=== PATIENT | female | born 2000 | race Two or more races ===

== ENCOUNTER 2021-05-25 20:13 | Emergency (ER) | payer SELFPAY ==
[2021-05-25 20:25] VITALS: BP 142/93; PULSE 85; RESP 18; TEMP 36.6; O2SAT 96
[2021-05-25 21:50] LABS: Basophils Absolute Auto 0.1 K/mm3 (0.0-0.1); Basophils Percent Auto 0.8 % (0.2-1.2); Eosinophils Absolute Auto 0.1 K/mm3 (0-0.3); Eosinophils Percent Auto 1.1 % (0-4.4); Hematocrit 43.1 % (37.0-47.0); Hemoglobin 14.3 g/dL (12.0-15.0); Immature Granulocyte Absolute 0.01 K/mm3 (0.00-0.031); Immature Granulocyte Percent A 0.1 % (0-0.5); Lymphocytes Absolute Auto 2.52 K/mm3 (0.9-3.2); Lymphocytes Percent Auto 32.1 % (18.3-44.2); Mean Corpuscular HGB Conc 33.2 g/dl (32-36); Mean Corpuscular Hemoglobin 29.7 pg (26-34); Mean Corpuscular Volume 89.6 fl (80-100); Mean Platelet Volume 10.4 fl (7.4-10.4); Monocytes Absolute Auto 0.5 K/mm3 (0.1-0.6); Monocytes Percent Auto 6.4 % (2.6-8.5); Neutrophils Absolute Auto 4.7 K/mm3 (1.3-6.7); Neutrophils Percent Auto 59.5 % (45.5-73.1); Platelet Count Result 249 k/mm3 (150-375); Red Blood Count 4.81 M/mm3 (4.2-5.4); Red Cell Distribution Width 12.3 % (11.5-14.5); White Blood Count 7.9 K/mm3 (4.5-10.0)
[2021-05-25 22:05] LABS: Alanine Aminotransferase 18 U/L (4-35); Albumin Level 4.7 g/dL (3.5-5.1); Alkaline Phosphatase 88 U/L (38-126); Anion Gap 9 mmol/L (8-16); Aspartate Amino Transferase 25 U/L (14-36); Bilirubin,Total 0.2 mg/dL (0.2-1.3); Blood Urea Nitrogen 15 mg/dL (7-17); Calcium 9.6 mg/dL (8.4-10.2); Carbon Dioxide 27 mmol/L (22-30); Chloride 107 mmol/L (98-107); Estimated CRCL calculation 107 ml/min; Estimated Glomerular Filt Rate > 60; Glucose 93 mg/dL (65-110); Potassium 3.9 mmol/L (3.4-5.0); Sodium 143 mmol/L (137-145)
[2021-05-25] MEDS: SODIUM CHLORIDE 0.9% IV 1,000 ML 999 ML IV CONT (22:12)
[2021-05-25 22:14] LABS: Lipase 162 U/L (23-300)
[2021-05-25 23:32] LABS: Add Urine Microscopic? NO; Appearance Urine Clear (Clear); Bilirubin Urine Negative (Negative); Blood Urine Negative (Negative); Color Urine Straw (Yellow); Glucose Urine UA Negative (Negative); Ketones Urine Negative (Negative); Leukocyte Esterase Ur Negative LEU/UL (Negative); Nitrate Urine Negative (Negative); Protein Urine Negative (Negative); Specific Grav Ur 1.017 (1.001-1.035); Urobilinogen Urine Negative mg/dL (<2.0)
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
[2021-05-26 00:58] VITALS: BP 119/79; PULSE 70; RESP 14; O2SAT 98
== END 2021-05-26 00:55 | disposition home or self-care (01) ==
PROVIDERS: Emergency Provider Emergency Medicine
DX: N93.9 Abnormal uterine and vaginal bleeding, unspecified (principal); R10.30 Lower abdominal pain, unspecified; G40.909 Epilepsy, unspecified, not intractable, without status epilepticus
CPT/HCPCS: 36415; 80053; 81003; 81025; 83690; 85025; 96360; 99284; J7030

== ENCOUNTER 2022-05-18 21:12 | Observation (INO) | payer OTHER, SELFPAY ==
--- NOTE | ~2022-05-18 | CT_ITS ---
EXAMINATION: CT brain wo con DATE: 05/18/2022 23:55 INDICATION: Superior and posterior headache. Increased seizure frequency. Dizziness. TECHNIQUE: Computed tomography (CT) of the head was performed without intravenous contrast. The mA wa s adjusted according to patient size. Iterative reconstruction technique was employed. Exam dose: 60 5.33 mGy-cm total exam DLP. COMPARISON: None FINDINGS: No intracranial mass lesion or hemorrhage Mastoid air cells and included paranasal sinuses are clear. No fracture or bone destruction of the cr anial vault. Or cerebrovascular accident. No midline shift or mass effect. Normal ventricular size. N o subdural or epidural hematoma. IMPRESSION: No significant abnormality Reviewed, dictated and finalized at [facility] Reviewed, dictated and finalized at [facility]. [facility] MEDIA IMPRESSION: No significant abnormality
[2022-05-18 21:15] VITALS: BP 119/101; PULSE 79; RESP 20; TEMP 36.4; O2SAT 99
[2022-05-18 22:10] VITALS: BP 122/80; PULSE 66; RESP 20; O2SAT 100
[2022-05-18] MEDS: LORazepam INJ (*CRX) 2 MG/ML VIAL IV PUSH (22:54)
--- NOTE | 2022-05-18 22:56 | PC.NURSE ---
Pt's friend alerted this RN that pt is unconscious . Upon entering room pt was not responsive to painful stimuli and began having tonic clonic seizure activity lasting approx 15-[address] Sifuentes notified and verbal order for 2mg ativan IV push given. 2mg ativan IV push administered at 2254. Mei VARGAS updated. Pt's friend states pt was c/o feeling dizzy before she started seizing.
--- NOTE | 2022-05-18 22:58 | ECG_ITS ---
Measurements Intervals [place] Rate: 61 P: 55 MN: 164 QRS: 25 QRSD: 85 T: -5 QT: 414 QTc: 417 Interpretive Statements SINUS RHYTHM NO PREVIOUS ECG AVAILABLE FOR COMPARISON Electronically Signed On 05-19-2022 8:28:28 [employer] CL[employer] by Britta Doty M.D.
--- NOTE | 2022-05-18 22:59 | ED.GENADULT ---
HPI - General Adult General Chief complaint: Seizure Stated complaint: seizures x2 days Time Seen by Provider: 05/18/22 22:20 History of Present Illness HPI narrative: patient is postictal. History was taken from her sister. This is a 22-year-old female with a known diagnosis of seizures. Over last 2 days she has been complaining of headache and increased frequency of seizures. She has been taking her medication as directed. She has not been complaining of any fevers or illness. Unable to obtain any other information Related Data Home Medications Medication Instructions Recorded Confirmed clonazepam 0.5 mg tablet 0.5 mg PO DAILY 05/18/22 05/18/22 escitalopram oxalate 10 mg tablet 10 mg PO DAILY 05/18/22 05/18/22 levetiracetam 250 mg tablet 250 mg PO BID 05/18/22 05/18/22 Allergies Allergy/AdvReac Type Severity Reaction Status Date / Time No Known Allergies Allergy Verified 05/18/22 21:19 [facility] Past Medical History Medical History (Updated 05/19/22 @ 01:47 by Lee Sifuentes MD) Seizure disorder Surgical History Surgical History (Updated 05/25/21 @ 23:39 by Javier Rice MD) No pertinent past surgical history Social History Social History (Updated 05/25/21 @ 23:39 by Javier Rice MD) Smoking status: Never smoker Course Vital Signs Vital signs: Vital Signs Temperature 97.5 F L 05/18/22 21:15 Pulse Rate 79 05/18/22 21:15 Respiratory Rate 20 05/18/22 21:15 Blood Pressure 119/101 H 05/18/22 21:15 Pulse Oximetry 99 05/18/22 21:15 Oxygen Delivery Room Air 05/18/22 21:15 Temperature 97.5 F L 05/18/22 21:15 Pulse Rate 62 05/19/22 00:44 Respiratory Rate 21 H 05/19/22 00:44 Blood Pressure 107/67 05/19/22 00:44 Pulse Oximetry 100 05/19/22 00:44 Oxygen Delivery Room Air 05/18/22 21:15 Medical Decision Making MDM Narrative Medical decision making narrative: -Presentation: 22-year-old female with known seizure diagnosis presenting ED with increasing seizure frequency. patient is currently postictal but told nursing staff that she has been taking her medications as directed. Does appear to be more stress at home than usual patient has been complaining of headache over last several days. -DDX includes but is not limited to: Breakthrough seizures, headache, intracranial hemorrhage, mass -Co-morbidities complicating care: seizure disorder, patient is postictal -Social determinants of health: patient is a grad student -External Chart Review: none -Independent history sources: Monique - Friend at bedside -Discussion of Management/Consultants: hao neuro-hospitalist -Independent interpretation of studies: CT head was negative for any acute findings. CBC was within normal limits. Metabolic panel is within normal limits. Independent EKG interpretation: Rhythm [sinus], Rate [61], [place] -[normal], [place] -[normal], QRS [narrow], QTC [normal], T waves -[negative for concerning inversions], ST Segments - [Negative for concerning elevations] Final interpretations: [Normal Sinus Rhythm] Dx tests considered but not ordered: -Procedures: -Interventions: 2 mg Ativan, 4200 mg Keppra, 1 L normal saline -Shared decision making / Disposition: patient had 2 witnessed seizures in the emergency department. She did return to her baseline mental status between them. The patient will be admitted hospital for newly intractable seizures. Consult has been placed to neurology. -RX Vital Signs Vital Signs: Vital Signs Temperature 97.5 F L 05/18/22 21:15 Pulse Rate 79 05/18/22 21:15 Respiratory Rate 20 05/18/22 21:15 Blood Pressure 119/101 H 05/18/22 21:15 Pulse Oximetry 99 05/18/22 21:15 Oxygen Delivery Room Air 05/18/22 21:15 Temperature 97.5 F L 05/18/22 21:15 Pulse Rate 62 05/19/22 00:44 Respiratory Rate 21 H 05/19/22 00:44 Blood Pressure 107/67 05/19/22 00:44 Pulse Oximetry 100 05/19/22 00:44 Oxyge
[2022-05-18] MEDS: SODIUM CHLORIDE 0.9% IV 1,000 ML 999 ML IV CONT (23:09)
[2022-05-18 23:19] LABS: Basophils Percent Auto 0.4 % (0.2-1.2); Eosinophils Absolute Auto 0.1 K/mm3 (0-0.3); Eosinophils Percent Auto 1.4 % (0-4.4); Hematocrit 40.8 % (37.0-47.0); Hemoglobin 13.5 g/dL (12.0-15.0); Immature Granulocyte Absolute 0.02 K/mm3 (0.00-0.031); Immature Granulocyte Percent A 0.2 % (0-0.5); Lymphocytes Absolute Auto 2.73 K/mm3 (0.9-3.2); Lymphocytes Percent Auto 27.8 % (18.3-44.2); Mean Corpuscular HGB Conc 33.1 g/dl (32-36); Mean Corpuscular Hemoglobin 29.5 pg (26-34); Mean Corpuscular Volume 89.3 fl (80-100); Mean Platelet Volume 11.3 fl (7.4-10.4); Monocytes Absolute Auto 0.6 K/mm3 (0.1-0.6); Monocytes Percent Auto 6.5 % (2.6-8.5); Neutrophils Absolute Auto 6.3 K/mm3 (1.3-6.7); Neutrophils Percent Auto 63.7 % (45.5-73.1); Platelet Count Result 260 k/mm3 (150-375); Red Blood Count 4.57 M/mm3 (4.2-5.4); Red Cell Distribution Width 12.7 % (11.5-14.5); White Blood Count 9.8 K/mm3 (4.5-10.0)
[2022-05-18 23:21] VITALS: BP 94/60; PULSE 62; RESP 16; O2SAT 100
[2022-05-18 23:31] LABS: Anion Gap 6 mmol/L (8-16); Blood Urea Nitrogen 21 mg/dL (7-17); Calcium 8.9 mg/dL (8.4-10.2); Carbon Dioxide 29 mmol/L (22-30); Chloride 105 mmol/L (98-107); Estimated CRCL calculation 102 ml/min; Estimated Glomerular Filt Rate > 60; Glucose 81 mg/dL (65-110); Magnesium 2.1 mg/dL (1.6-2.3); Potassium 3.8 mmol/L (3.4-5.0); Sodium 140 mmol/L (137-145)
[2022-05-19] VITALS (22 sets, daily range): BP systolic 96–119; BP diastolic 50–72; PULSE 55–91; RESP 16–22; TEMP 36.1–36.6; O2SAT 98–100; BMI 27.0; BMI 26.9
[2022-05-19 00:14] LABS: Influenza A QL RT-PCR Negative (Negative); Influenza B QL RT-PCR Negative (Negative); RSV RNA, RT-PCR Negative (Negative); SARS-CoV-2 RNA PCR Negative
--- NOTE | 2022-05-19 00:56 | PM.IMHP ---
H&P: HPI History of Present Illness Date/Time: 05/19/22 00:56 Chief Complaint: Seizures Narrative: 22-year-old female with past medical history significant for seizures patient is brought to the emergency room after having been witnessed several seizures by her roommate PMF Past Medical History Medical History (Updated 05/19/22 @ 03:30 by Wolf Borwn MD) Seizure disorder Surgical History Surgical History (Updated 05/25/21 @ 23:39 by Javier Rice MD) No pertinent past surgical history Family History Family History (Updated 05/19/22 @ 03:24 by Tiffany Noguera RN) Father Diabetes mellitus Social History Social History (Updated 05/25/21 @ 23:39 by Javier Rice MD) Smoking status: Never smoker Second hand tobacco smoke exposure: No Alcohol intake: current Drinks per week: 1 Substance use: never Lack of Transportation: No Lack of Food: Never True Current Housing: I Have Housing Concerned About Future Housing: No Difficulty Paying Gas/Electric Bills: No Difficulty Paying for Meds: No Currently Unemployed: No Education: Bachelor's Degree Difficulty w/ Childcare or Family Care: No Spiritual care concerns: No Meds Home Medications and Allergies Home Medications Medication Instructions Recorded Confirmed Type clonazepam 0.5 mg tablet 0.5 mg PO DAILY 05/18/22 05/18/22 History escitalopram oxalate 10 mg tablet 10 mg PO DAILY 05/18/22 05/18/22 History levetiracetam 250 mg tablet 250 mg PO BID 05/18/22 05/18/22 History Allergies Allergy/AdvReac Type Severity Reaction Status Date / Time No Known Allergies Allergy Verified 05/18/22 21:19 Vital Signs Vital Signs - 24 hr 05/18/22 21:15 05/18/22 22:10 05/18/22 23:21 Temperature 97.5 F L Pulse Rate 79 66 62 Respiratory Rate 20 20 16 Blood Pressure 119/101 H 122/80 94/60 L Pulse Oximetry 99 100 100 Oxygen Delivery Room Air 05/19/22 00:31 05/19/22 00:44 Temperature Pulse Rate 62 62 Respiratory Rate 19 21 H Blood Pressure 107/67 Pulse Oximetry 100 100 Oxygen Delivery H&P: Results Labs Labs: Short CBC 05/18/22 Range/Units 23:08 WBC 9.8 (4.5-10.0) K/mm3 Hgb 13.5 (12.0-15.0) g/dL Hct 40.8 (37.0-47.0) % Plt Count 260 (150-375) k/mm3 [facility] 05/18/22 23:08 Sodium 140 Potassium 3.8 Chloride 105 Carbon Dioxide 29 BUN 21 H Creatinine 0.70 Glucose 81 Calcium 8.9 Assessment and Plan Assessment and plan (1) Breakthrough seizure: Code(s): G40.919 - Epilepsy, unspecified, intractable, without status epilepticus Status: Acute (2) Altered mental status: Code(s): R41.82 - Altered mental status, unspecified Status: Acute
[2022-05-19 01:58] LABS: Influenza A QL RT-PCR Negative (Negative); Influenza B QL RT-PCR Negative (Negative); SARS-CoV-2 RNA PCR Negative
--- NOTE | 2022-05-19 02:53 | ADMGEN ---
This patient, Lisa Mendez, was admitted to IMU Room 203-01 at 0250. Patient/family oriented to hospital policies and general routines including ID bracelet, bed and alarms, visiting hours, pain management, procedures, bathroom and other care routines, personal items, smoking policy, room service/diet, and visiting hours. Information on how to activate the Rapid Response Team has been discussed. Patient/Family are encouraged to report perceived risks to care and to ask questions if they do not understand what they are told or what they should do.
[2022-05-19] MEDS: LACTATED RINGERS 1,000 ML 125 ML IV CONT (03:52)
--- NOTE | 2022-05-19 09:34 | PM.IMPN ---
Progress Note: A&P Assessment and Plan (1) Breakthrough seizure: Code(s): G40.919 - Epilepsy, unspecified, intractable, without status epilepticus Status: Acute Assessment and Plan: -given keppra 4200 IVPB in ED -Ativan 2 mg prn for seizure -no neurological deficits, pt A/Ox3 at this time w/ persistent ENRIQUE -restarted home dose of Keppra 250 po BID -pending neuro consult (2) Altered mental status: Code(s): R41.82 - Altered mental status, unspecified Status: Acute Assessment and Plan: -resolved, pt A/Ox3 Subjective Date/time seen: 05/19/22 09:34 Interval history: 22 yo w/ hx of seizures admitted for intractable breakthrough seizure. Pt A/Ox3 currently but still very somnolent. Reports extreme weakness/fatigue and continued posterior ENRIQUE. No paraesthesias. Reports she had been taking her seizure medication as directed. States her neurologist is in [place]. She has been here for 1 year but has not established with a neurologist here. Review of Systems Review of Systems: All systems reviewed & are unremarkable except as noted in HPI and below Exam Narrative: General: No acute distress, non toxic appearing, somnolent but arousable, lethargic Eyes: PERRL, no scleral icterus HEENT: NCAT, external ears normal, MMM Respiratory: No respiratory distress, Lungs CTA bilaterally, no wheezing Cardiovascular: RRR, no murmur Abdominal: Soft, nontender, non distended, no rebound or guarding Musculoskeletal: Moves all 4 extremities, no edema Neurological: A/Ox3, speech clear, no facial asymmetry Skin: Warm, dry, no rashes Psychiatric: Normal affect, normal mood Objective Data Vital Signs Vital Signs: Vital Signs - 24 hr 05/18/22 21:15 05/18/22 22:10 05/18/22 23:21 Temperature 97.5 F L Pulse Rate 79 66 62 Respiratory Rate 20 20 16 Blood Pressure 119/101 H 122/80 94/60 L Pulse Oximetry 99 100 100 Oxygen Delivery Room Air 05/19/22 00:31 05/19/22 00:44 05/19/22 01:47 Temperature Pulse Rate 62 62 71 Respiratory Rate 19 21 H 22 H Blood Pressure 107/67 97/63 L Pulse Oximetry 100 100 100 Oxygen Delivery 05/19/22 02:30 05/19/22 02:56 05/19/22 04:13 Temperature 97.8 F 97.3 F L Pulse Rate 55 L 72 60 Respiratory Rate 20 20 20 Blood Pressure 105/72 96/57 L 98/61 L Pulse Oximetry 100 100 100 Oxygen Delivery 05/19/22 04:00 05/19/22 04:00 05/19/22 06:00 Temperature Pulse Rate 57 L 58 L Respiratory Rate Blood Pressure Pulse Oximetry Oxygen Delivery Room Air 05/19/22 08:06 Temperature 97.6 F Pulse Rate 71 Respiratory Rate 18 Blood Pressure 105/71 Pulse Oximetry 100 Oxygen Delivery Intake/Output Intake/Output: Intake & Output 05/16/22 05/17/22 05/18/22 05/19/22 23:59 23:59 23:59 23:59 Intake Total 1142 Output Total 350 Balance 792 Meds/Results Medications: Active Medications Generic Name Dose Route Start Last Admin Trade Name Freq PRN Reason Stop Dose Admin Lactated Ringer's 1,000 mls @ 125 mls/hr 05/19/22 01:50 05/19/22 03:52 Lr - Lactated Ringers Iv IV CONT 125 mls/hr .Q8H DAIJA Administration Lorazepam 2 mg 05/19/22 01:47 Lorazepam Inj (*Crx) 2 Mg/Ml Vial IV PUSH ONCE PRN Seizure Activity Labs Labs: Laboratory Results - last 24 hr 05/18/22 05/18/22 05/18/22 23:08 23:08 23:08 WBC 9.8 RBC 4.57 Hgb 13.5 Hct 40.8 MCV 89.3 MCH 29.5 MCHC 33.1 RDW 12.7 Plt Count 260 MPV 11.3 H Immature Gran % (Auto) 0.2 Neut % (Auto) 63.7 Lymph % (Auto) 27.8 [place] % (Auto) 6.5 Eos % (Auto) 1.4 Baso % (Auto) 0.4 Lymph # (Auto) 2.73 [place] # (Auto) 0.6 Eos # (Auto) 0.1 Baso # (Auto) 0.0 Abs Immat Gran (auto) 0.02 Absolute Neuts (auto) 6.3 Absolute Nucleated RBC 0.0 Nucleated RBC % 0.0 Sodium 140 Potassium 3.8 Chloride 105 Carbon Dioxide 29 Anion Gap 6 L BUN 21 H Crea
--- NOTE | 2022-05-19 11:20 | WPDNEURCNPN ---
Consult date: 05/19/22 HPI: Lisa Mendez is a 22 year old female admitted to the hospital through the emergency room where she was brought in with the history of having recurrent seizure of 48 hours duration was noted Rosanne postictal on initial evaluation in the ER further information was given by her sister who reported that she has a known case of seizure disorder and has been experiencing headache increased in frequency of seizures over the last 48 hours without any associated general symptomatology such as fever her medications included clonazepam 0.5 mg daily with the psych at a prime 10 mg daily and levetiracetam 250 mg b.i.d. she is not a smoker initial vital signs were normal EKG was normal without atrial fibrillation CT scan head normal, routine lab studies were normal including the serology and head CT scan was negative for the Review of Systems Review of Systems: All systems reviewed & are unremarkable except as noted in HPI and below PMFSH Past Medical History Medical History (Updated 05/19/22 @ 03:30 by Wolf Brown MD) Seizure disorder Surgical History Surgical History (Updated 05/25/21 @ 23:39 by Javier Rice MD) No pertinent past surgical history Family History Family History (Updated 05/19/22 @ 03:24 by Tiffany Noguera RN) Father Diabetes mellitus Social History Social History (Updated 05/25/21 @ 23:39 by Javier Rcie MD) Smoking status: Never smoker Second hand tobacco smoke exposure: No Alcohol intake: current Drinks per week: 1 Substance use: never Lack of Transportation: No Lack of Food: Never True Current Housing: I Have Housing Concerned About Future Housing: No Difficulty Paying Gas/Electric Bills: No Difficulty Paying for Meds: No Currently Unemployed: No Education: Bachelor's Degree Difficulty w/ Childcare or Family Care: No Spiritual care concerns: No Meds Home Medications and Allergies Home Medications Medication Instructions Recorded Confirmed Type clonazepam 0.5 mg tablet 0.5 mg PO DAILY 05/18/22 05/18/22 History escitalopram oxalate 10 mg tablet 10 mg PO DAILY 05/18/22 05/18/22 History levetiracetam 250 mg tablet 250 mg PO BID 05/18/22 05/18/22 History Allergies Allergy/AdvReac Type Severity Reaction Status Date / Time No Known Allergies Allergy Verified 05/18/22 21:19 Vital Signs Vital Signs - 24 hr 05/18/22 21:15 05/18/22 22:10 05/18/22 23:21 Temperature 36.4 C L Pulse Rate 79 66 62 Respiratory Rate 20 20 16 Blood Pressure 119/101 H 122/80 94/60 L Pulse Oximetry 99 100 100 Oxygen Delivery Room Air 05/19/22 00:31 05/19/22 00:44 05/19/22 01:47 Temperature Pulse Rate 62 62 71 Respiratory Rate 19 21 H 22 H Blood Pressure 107/67 97/63 L Pulse Oximetry 100 100 100 Oxygen Delivery 05/19/22 02:30 05/19/22 02:56 05/19/22 04:13 Temperature 36.6 C 36.3 C L Pulse Rate 55 L 72 60 Respiratory Rate 20 20 20 Blood Pressure 105/72 96/57 L 98/61 L Pulse Oximetry 100 100 100 Oxygen Delivery 05/19/22 04:00 05/19/22 04:00 05/19/22 06:00 Temperature Pulse Rate 57 L 58 L Respiratory Rate Blood Pressure Pulse Oximetry Oxygen Delivery Room Air 05/19/22 08:06 05/19/22 08:00 05/19/22 10:00 Temperature 36.4 C Pulse Rate 71 75 62 Respiratory Rate 18 Blood Pressure 105/71 Pulse Oximetry 100 Oxygen Delivery Results Labs 05/18/22 23:08 05/18/22 23:08 Labs: Short CBC 05/18/22 Range/Units 23:08 WBC 9.8 (4.5-10.0) K/mm3 Hgb 13.5 (12.0-15.0) g/dL Hct 40.8 (37.0-47.0) % Plt Count 260 (150-375) k/mm3 BMP 05/18/22 23:08 Sodium 140 Potassium 3.8 Chloride 105 Carbon Dioxide 29 BUN 21 H Creatinine 0.70 Glucose 81 Calcium 8.9
[2022-05-19] MEDS: levETIRAcetam 250 MG TABLET PO ×2 (11:32→16:40)
--- NOTE | 2022-05-19 11:53 | PC.NURSE ---
Dr. Butts and CARLOS MANUEL Corley notified of witnessed seizure lasting approximately 20 seconds. Bilateral leg clonic movement only. Patient responsive to verbal stimuli immediately following seizure, oriented x4. No medication administered at the time of seizure. Will continue to monitor closely.
[2022-05-19] MEDS: ACETAMINOPHEN 325 MG TABLET 650 MG PO (14:15)
--- NOTE | 2022-05-19 16:30 | PC.NURSE ---
Alerted to patient room for seizure, sternal rub applied with immediate response and discontinuation of seizure. Patient responsive to verbal stimuli and oriented x3. Will continue to monitor closely.
[2022-05-20] VITALS (15 sets, daily range): BP systolic 98–123; BP diastolic 57–72; PULSE 52–96; RESP 16–20; TEMP 36.1–36.6; O2SAT 96–100; BMI 27.0
[2022-05-20 04:12] LABS: Basophils Percent Auto 0.5 % (0.2-1.2); Eosinophils Absolute Auto 0.1 K/mm3 (0-0.3); Eosinophils Percent Auto 1.4 % (0-4.4); Hemoglobin 14.1 g/dL (12.0-15.0); Immature Granulocyte Absolute 0.01 K/mm3 (0.00-0.031); Immature Granulocyte Percent A 0.1 % (0-0.5); Lymphocytes Absolute Auto 2.68 K/mm3 (0.9-3.2); Lymphocytes Percent Auto 36.3 % (18.3-44.2); Mean Corpuscular HGB Conc 33.6 g/dl (32-36); Mean Corpuscular Hemoglobin 29.7 pg (26-34); Mean Corpuscular Volume 88.6 fl (80-100); Mean Platelet Volume 11.3 fl (7.4-10.4); Monocytes Absolute Auto 0.5 K/mm3 (0.1-0.6); Monocytes Percent Auto 6.6 % (2.6-8.5); Neutrophils Absolute Auto 4.1 K/mm3 (1.3-6.7); Neutrophils Percent Auto 55.1 % (45.5-73.1); Platelet Count Result 260 k/mm3 (150-375); Red Blood Count 4.74 M/mm3 (4.2-5.4); Red Cell Distribution Width 12.5 % (11.5-14.5); White Blood Count 7.4 K/mm3 (4.5-10.0)
[2022-05-20 04:33] LABS: Alanine Aminotransferase 15 U/L (6-35); Albumin Level 4.7 g/dL (3.5-5.1); Alkaline Phosphatase 81 U/L (38-126); Anion Gap 8 mmol/L (8-16); Aspartate Amino Transferase 22 U/L (14-36); Bilirubin,Total 0.4 mg/dL (0.2-1.3); Blood Urea Nitrogen 12 mg/dL (7-17); Carbon Dioxide 26 mmol/L (22-30); Chloride 104 mmol/L (98-107); Estimated CRCL calculation 100 ml/min; Estimated Glomerular Filt Rate > 60; Glucose 99 mg/dL (65-110); Potassium 3.7 mmol/L (3.4-5.0); Sodium 138 mmol/L (137-145)
[2022-05-20] MEDS: levETIRAcetam 250 MG TABLET PO ×2 (09:12→16:59)
[2022-05-20] MEDS: ACETAMINOPHEN 325 MG TABLET 650 MG PO ×2 (09:12→17:01)
--- NOTE | 2022-05-20 09:29 | PM.IMPN ---
Progress Note: A&P Assessment and Plan (1) Breakthrough seizure: Code(s): G40.919 - Epilepsy, unspecified, intractable, without status epilepticus Status: Acute Assessment and Plan: Patient presented with increased frequency of breakthrough seizures while maintaining compliance to her antiepileptic medications -patient was loaded with keppra 4200 IVPB in ED -no focal neurologic deficits on exam -continue with Ativan 2 mg p.r.n. for seizure -increase home Keppra to 500 mg b.i.d. per Neurology recommendations. Discussed case with Dr. Butts -EEG is pending -appreciate neurology recommendations (2) Altered mental status: Code(s): R41.82 - Altered mental status, unspecified Status: Acute Assessment and Plan: Likely due to post-ictal state -Patient is A&Ox4 today and answers all questions appropriately though does report some confusion (3) Headache: Code(s): R51.9 - Headache, unspecified Status: Acute Assessment and Plan: Likely secondary to breakthrough seizures -Head CT reviewed with no acute intracranial findings -Supportive care Subjective Date/time seen: 05/20/22 09:29 Interval history: Date of service: 05/20/2022 Lisa Mendez is a 22-year-old female with history of seizure disorder who is seen in follow-up for breakthrough seizures. Patient reports having a seizure yesterday afternoon. Review of nursing notes indicates that she had 2 episodes of seizure-like activity yesterday that was self-limited and did not require any medications. Seizures were terminated after about 20 seconds and patient was responsive afterwards. Today the patient states that she feels dizzy and has an all over headache. She states both of these symptoms are typical for her after having a seizure. She feels very weak and today when attempting to get up to the bedside commode she needed assistance and felt that she could not stand up for more than 30 seconds. She feels unsteady. She is unsure if she bit her tongue or not yesterday but does note some pain in her mouth. Denies any episodes of incontinence. She does feel slightly confused today. She denies episodes of nausea or vomiting. Denies shortness of breath, cough, or chest pain. States that she was established with a neurologist in [place], but has not been seen by any neurologist since moving to the [place] 1 [place] ago. Review of Systems Review of Systems: All systems reviewed & are unremarkable except as noted in HPI and below Exam Narrative: General: Well-nourished, well-appearing 22-year-old female, sitting up in bed, comfortable, NARD Neuro: Drowsy, alert and oriented x4, speech clear, no focal neuro deficits noted HEENMT: normocephalic, atraumatic, EOMI, sclerae anicteric, moist oral mucosa, no tongue laceration visualized Respiratory: clear to auscultation bilaterally, nonlabored breathing Cardio: regular rate, regular rhythm with S1-S2 Abdomen: nondistended, normoactive bowel sounds, soft, nontender to palpation Extremities: no edema, erythema, or tenderness to palpation, DP pulses 2+ bilaterally Skin: no rashes or lesions, warm and dry Psych: appropriate mood and affect, judgment and insight intact Objective Data Vital Signs Vital Signs: Vital Signs - 24 hr 05/19/22 10:00 05/19/22 11:57 05/19/22 12:07 Temperature 97 F L Pulse Rate 62 88 76 Respiratory Rate 16 Blood Pressure 119/58 L Pulse Oximetry 98 Oxygen Delivery Room Air 05/19/22 12:00 05/19/22 14:00 05/19/22 16:19 Temperature 97.3 F L Pulse Rate 76 81 63 Respiratory Rate Blood Pressure 98/66 L Pulse Oximetry 100 Oxygen Delivery 05/19/22 16:00 05/19/22 16:00 05/19/22 18:00 Temperature Pulse Rate 83 75 Respiratory Rate Blood Pressure Pulse Oximetry Oxygen Delivery Room Air 05/19/22 19:55 05/19/22 20:00 05/19/22 20:00 Temperature 97.8 F Pulse Rate 64 63 Respiratory Rate 20 Bl
[2022-05-20 10:15] LABS: Glucose Point of Care 146 mg/dl (65-105)
[2022-05-21] VITALS (14 sets, daily range): BP systolic 99–143; BP diastolic 55–85; PULSE 46–78; RESP 16–20; TEMP 36.6–36.9; O2SAT 98–100
[2022-05-21] MEDS: ACETAMINOPHEN 325 MG TABLET 650 MG PO ×2 (00:14→21:25)
[2022-05-21] MEDS: LORazepam INJ (*CRX) 2 MG/ML VIAL IV PUSH ×2 (00:16→09:07)
[2022-05-21 05:28] LABS: Hematocrit 40.1 % (37.0-47.0); Hemoglobin 13.1 g/dL (12.0-15.0); Mean Corpuscular HGB Conc 32.7 g/dl (32-36); Mean Corpuscular Hemoglobin 29.2 pg (26-34); Mean Corpuscular Volume 89.3 fl (80-100); Mean Platelet Volume 11.2 fl (7.4-10.4); Platelet Count Result 248 k/mm3 (150-375); Red Blood Count 4.49 M/mm3 (4.2-5.4); Red Cell Distribution Width 12.4 % (11.5-14.5); White Blood Count 8.4 K/mm3 (4.5-10.0)
[2022-05-21 05:36] LABS: Anion Gap 6 mmol/L (8-16); Blood Urea Nitrogen 16 mg/dL (7-17); Calcium 8.9 mg/dL (8.4-10.2); Carbon Dioxide 26 mmol/L (22-30); Chloride 106 mmol/L (98-107); Estimated CRCL calculation 100 ml/min; Estimated Glomerular Filt Rate > 60; Glucose 92 mg/dL (65-110); Potassium 3.7 mmol/L (3.4-5.0); Sodium 138 mmol/L (137-145)
[2022-05-21] MEDS: levETIRAcetam 250 MG TABLET PO ×2 (09:08→17:20)
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
[2022-05-21 09:49] LABS: Glucose Point of Care 85 mg/dl (65-105)
[2022-05-21] MEDS: ESCITALOPRAM OXALATE 10 MG TABLET 20 MG PO (09:56)
--- NOTE | 2022-05-21 11:09 | P.NEURO_ITS ---
Neurology EEG Report General Information Date of Study: 05/20/22 TEST Routine EEG DIAGNOSIS Concern for epileptic seizure vs non-epileptic seizure CONDITION OF RECORDING Awake, drowsy, asleep EEG NUMBER [id number] CLINICAL HISTORY Patient was brought in to the hospital due to concerns for recurrent seizure- like activity. Patient also has a history of PTSD and anxiety. EEG DESCRIPTION During the awake state with eyes closed the background consists of 9 Hz posterior dominant rhythm which attenuates appropriately with eye opening. The recording is continuous. There is a well developed anterior-posterior gradient. No significant asymmetries of background activities are noted. With drowsiness there is was waxing and waning of the dominant rhythm with eventual replacement by a mixture of beta, alpha, and theta activity. As the patient enters stage II sleep, symmetrical spindles and K-complexes are present. Arousal is unremarkable. There are no epileptiform discharges or seizures during this recording. Hyperventilation and photic stimulation were not performed. IMPRESSION This is a normal routine EEG recorded in awake and asleep states. There are no electrographic seizures identified, nor are there any epileptiform discharges. Please note that a normal EEG cannot exclude a seizure disorder. Clinical correlation is recommended.
[2022-05-22] VITALS: PULSE 80; RESP 18; O2SAT 99
[2022-05-22] MEDS: LORazepam INJ (*CRX) 2 MG/ML VIAL 1 MG IV PUSH (00:44)
[2022-05-22 02:00] VITALS: PULSE 74
[2022-05-22 04:00] VITALS: BP 110/68; PULSE 62; PULSE 77; RESP 18; TEMP 36.7; O2SAT 99
[2022-05-22 05:53] LABS: HIV 1/2 Ab P24 Ag Result Negative (Negative)
[2022-05-22 06:00] VITALS: PULSE 59
[2022-05-22 06:16] LABS: Hepatitis B Surface Antigen Negative (Negative)
[2022-05-22 06:22] LABS: HAV RESULT Negative (Negative); Hepatitis B Core IgM Result Negative (Negative); Vitamin D 25 Hydroxy 14.5 ng/mL
[2022-05-22 06:33] LABS: Hepatitis C Virus Antibody Negative (Negative)
[2022-05-22 08:00] VITALS: BP 107/53; PULSE 61; PULSE 62; PULSE 64; RESP 16; RESP 18; TEMP 36.2; O2SAT 100; O2SAT 99
[2022-05-22] MEDS: levETIRAcetam 250 MG TABLET PO (08:47)
[2022-05-22] MEDS: ESCITALOPRAM OXALATE 10 MG TABLET 20 MG PO (08:48)
[2022-05-22] MEDS: ACETAMINOPHEN 325 MG TABLET 650 MG PO (10:44)
[2022-05-22] MEDS: CHOLECALCIFEROL 400 UNITS TABLET (VIT D) 800 UNITS PO (10:45)
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
[2022-05-22 16:22] LABS: Rapid Plasma Reagin Non-Reactive (NonReactive)
== END 2022-05-22 13:50 | disposition home or self-care (01) ==
LOC: ANHED 05-19 01:47 → ANHIMU 05-19 02:59
PROVIDERS: Physician Assistant; Admitting Provider Internal Medicine; Emergency Provider Emergency Medicine; Visit Provider Physician Assistant
DX: F43.10 Post-traumatic stress disorder, unspecified (principal); F44.5 Conversion disorder with seizures or convulsions; F41.9 Anxiety disorder, unspecified; F32.A Depression, unspecified; E55.9 Vitamin D deficiency, unspecified; Z11.4 Encounter for screening for human immunodeficiency virus [HIV]; R42 Dizziness and giddiness; R51.9 Headache, unspecified; F10.90 Alcohol use, unspecified, uncomplicated; Z20.822 Contact with and (suspected) exposure to COVID-19; Z62.819 Personal history of unspecified abuse in childhood; Z79.899 Other long term (current) drug therapy
CPT/HCPCS: 36415; 70450; 80048; 80053; 80074; 81025; 82306; 82607; 82746; 82948; 83735; 84443; 85025; 85027; 86592; 86703; 87636; 87637; 93005; 95816; 96365; 96374; 96375; 96376; 99285; A9270; G0378; G0432; J1953; J2060; J7030; J7120

== ENCOUNTER 2022-07-12 13:17 | Emergency (ER) | payer OTHER, SELFPAY ==
--- NOTE | ~2022-07-12 | XR_ITS ---
XR hip RT 2V w AP pelvis DATE: 07/12/2022 18:08 INDICATION: Pain and swelling of right hip after fall yesterday TECHNIQUE: AP pelvis. AP and lateral views of the right hip COMPARISON: None FINDINGS: Normal alignment at the pubic symphysis and sacroiliac joints. No pelvic fracture or bone d estruction. Hip joint spaces are symmetric and well preserved. No fracture or dislocation, avascular necrosis or bone destruction of the right hip. IMPRESSION: Negative right hip Reviewed, dictated and finalized at location A. IMPRESSION: Negative right hip
[2022-07-12 13:57] VITALS: BP 119/79; PULSE 72; RESP 16; TEMP 36.6; O2SAT 100
--- NOTE | 2022-07-12 17:00 | ED.GENADULT ---
HPI - General Adult General Chief complaint: Fall Stated complaint: fall Time Seen by Provider: 07/12/22 16:51 History of Present Illness HPI narrative: Patient is a 22-year-old female here with pelvic pain after she had a fall yesterday. Patient states that she was standing out on her balcony when her leg accidentally went through a hole in the balcony causing her to do the splits and has since complained of pain in her pelvic region. She states that she had scant amount of vaginal bleeding yesterday but none today. She denies head injury or loss of consciousness. She took ibuprofen yesterday with good relief of her symptoms but has not taken any medicine today. Related Data Home Medications Medication Instructions Recorded Confirmed clonazepam 0.5 mg tablet 0.5 mg PO DAILY 05/18/22 05/18/22 Allergies Allergy/AdvReac Type Severity Reaction Status Date / Time No Known Allergies Allergy Verified 05/18/22 21:19 Review of Systems Review of Systems: Gen.: Denies fevers or chills Eyes: Denies eye pain or visual change ENT: Denies congestion Respiratory: Denies shortness of breath or cough CV: Denies chest pain or palpitations GI: Denies abdominal pain nausea, emesis or diarrhea reports pelvic pain. Denies burning, urgency, frequency or hematuria Musculoskeletal: Denies back pain or muscle pain Neuro: Denies numbness, tingling, weakness or focal weakness Skin: Denies rash Except as documented, all other systems reviewed and negative [facility] Past Medical History Medical History Seizure disorder Surgical History Surgical History No pertinent past surgical history Family History Family History (Updated 05/19/22 @ 03:24 by Tiffany Noguera RN) Father Diabetes mellitus Social History Social History (Updated 05/25/21 @ 23:39 by Javier Rice MD) Smoking status: Never smoker Second hand tobacco smoke exposure: No Alcohol intake: current Drinks per week: 1 Substance use: never Lack of Transportation: No Lack of Food: Never True Current Housing: I Have Housing Concerned About Future Housing: No Difficulty Paying Gas/Electric Bills: No Difficulty Paying for Meds: No Currently Unemployed: No Education: Bachelor's Degree Difficulty w/ Childcare or Family Care: No Spiritual care concerns: No Exam Narrative: Gen: Alert, oriented, no acute distress Eyes: EOMI, no icterus Pulm: Respirations even and unlabored, symmetric thorax expansion, no audible stridor or visible cyanosis CV: Regular rate per telemetry GI: No distension, no voluntary/involuntary guarding : exam performed with merchant patroller michelle. patient has bruising to the right upper inner thigh that is tender to palpation. there is bruising to her L buttock with underlying tenderness to palpation. she has pain with internal exam which somewhat limits speculum examination but there is no vaginal bleeding or apparent vaginal wall laceration. Neuro: AOx4, moves all extremities without apparent difficulty or weakness, follows commands Skin: there are >10 linear scars to the bilateral anterior thighs and an area of bruising to the right inner thigh and left buttock. Psych: Normal mood/affect, insight/judgement good, adequate fund of knowledge, recent/remote memory intact Course Vital Signs Vital signs: Vital Signs Temperature 97.8 F 07/12/22 13:57 Pulse Rate 72 07/12/22 13:57 Respiratory Rate 16 07/12/22 13:57 Blood Pressure 119/79 07/12/22 13:57 Pulse Oximetry 100 07/12/22 13:57 Oxygen Delivery Room Air 07/12/22 13:57 Temperature 97.8 F 07/12/22 13:57 Pulse Rate 72 07/12/22 13:57 Respiratory Rate 16 07/12/22 13:57 Blood Pressure 119/79 07/12/22 13:57 Pulse Oximetry 100 07/12/22 13:57 Oxygen Delivery Room Air 07/12/22 13:57 Medical Decision M
[2022-07-12] MEDS: IBUPROFEN 600 MG TABLET PO (17:20)
[2022-07-12] MEDS: ACETAMINOPHEN 325 MG TABLET 650 MG PO (17:20)
--- NOTE | 2022-07-12 17:57 | PC.NURSE ---
Patient off unit to CT.
[2022-07-12 18:28] VITALS: BP 117/81; PULSE 81; RESP 15
== END 2022-07-12 18:31 | disposition home or self-care (01) ==
PROVIDERS: Emergency Provider Physician Assistant
DX: S70.01XA Contusion of right hip, initial encounter (principal); G40.909 Epilepsy, unspecified, not intractable, without status epilepticus; W13.0XXA Fall from, out of or through balcony, initial encounter
CPT/HCPCS: 73502; 99283; A9270

== ENCOUNTER 2023-04-30 21:07 | Emergency (ER) | payer OTHER, SELFPAY ==
[2023-04-30 21:10] VITALS: BP 106/54; PULSE 74; RESP 15; TEMP 36.2; O2SAT 100
--- NOTE | 2023-04-30 22:47 | ED.GENADULT ---
HPI - General Adult General Chief complaint: Wound/Laceration Stated complaint: cut to left hand Time Seen by Provider: 04/30/23 21:41 Source: patient Mode of arrival: ambulatory Limitations: no limitations History of Present Illness HPI narrative: This is a 23-year-old female who presents to the ED with chief complaint of laceration injury occurring just prior to arrival. Reports she was using a [employer] knife when she accidentally cut the space in between her 2nd and 3rd digits of the left hand. Denies numbness, weakness or any further sites of injury. Tetanus up to date. Related Data Home Medications Medication Instructions Recorded Confirmed clonazepam 0.5 mg tablet 0.5 mg PO DAILY 05/18/22 05/18/22 Allergies Allergy/AdvReac Type Severity Reaction Status Date / Time No Known Allergies Allergy Verified 04/30/23 22:15 Review of Systems Review of Systems: All systems as dictated in [facility] Past Medical History Medical History Seizure disorder Surgical History Surgical History No pertinent past surgical history Family History Family History (Updated 05/19/22 @ 03:24 by Tiffany Noguera RN) Father Diabetes mellitus Social History Social History (Updated 05/25/21 @ 23:39 by Javier Rice MD) Smoking status: Never smoker Second hand tobacco smoke exposure: No Alcohol intake: current Drinks per week: 1 Substance use: never Lack of Transportation: No Lack of Food: Never True Current Housing: I Have Housing Concerned About Future Housing: No Difficulty Paying Gas/Electric Bills: No Difficulty Paying for Meds: No Currently Unemployed: No Education: Bachelor's Degree Difficulty w/ Childcare or Family Care: No Spiritual care concerns: No Exam Narrative: GENERAL: Well-appearing, well-nourished, and in no acute distress. HEAD: Normocephalic, atraumatic. EYES: PERRLA and EOMI. ENT: Nares clear, no rhinorrhea or epistaxis. Mucous membranes moist. Oropharynx without tonsillar hypertrophy exudate or other lesions. NECK: Supple. No adenopathy or masses. CHEST: No respiratory distress. Clear to auscultation. No wheezes rales or rhonchi HEART: Regular rate and rhythm. No murmur heard. Normal peripheral pulses. ABDOMEN: Soft, nontender, nondistended, normal active bowel sounds. MSK: Normal range of motion. No edema. SKIN: 1.5 cm laceration to the interdigit space of the 2nd and 3rd digits. NEURO: Alert and oriented x3. No focal deficits. PSYCH: Normal mood and affect. Course Vital Signs Vital signs: Vital Signs Temperature 97.2 F L 04/30/23 21:10 Pulse Rate 74 04/30/23 21:10 Respiratory Rate 15 04/30/23 21:10 Blood Pressure 106/54 L 04/30/23 21:10 Pulse Oximetry 100 04/30/23 21:10 Oxygen Delivery Room Air 04/30/23 21:10 Temperature 97.2 F L 04/30/23 21:10 Pulse Rate 74 04/30/23 21:10 Respiratory Rate 15 04/30/23 21:10 Blood Pressure 106/54 L 04/30/23 21:10 Pulse Oximetry 100 04/30/23 21:10 Oxygen Delivery Room Air 04/30/23 21:10 Procedures Laceration Laceration 1: Date: 04/30/23 Time: 23:21 Site: hand Side (If applicable): left Size (cm): 1.5 Description: linear Depth: simple, single layer Local Anesthetic: lidocaine 1% and with epi Amount of anesthesia used (mL): 2 Pre-repair: wound explored, irrigated extensively and deep structures intact ====== Skin Level ====== Skin layer closed with: nylon and dermabond Size (cm): 5-0 Number of sutures: 2 Technique: simple, interrupted ====== Subcutaneous Layer ====== ====== Muscle Layer ====== ====== Tendon Layer ====== Medical Decision Making [facility] Narrative Medical decision making narrative: This is a 23-
== END 2023-04-30 23:48 | disposition home or self-care (01) ==
PROVIDERS: Emergency Provider Physician Assistant
DX: S61.412A Laceration without foreign body of left hand, initial encounter (principal); G40.909 Epilepsy, unspecified, not intractable, without status epilepticus; W26.0XXA Contact with knife, initial encounter
CPT/HCPCS: 12001; 99283

== ENCOUNTER 2023-05-08 22:57 | Inpatient (IN) | payer OTHER, SELFPAY ==
--- NOTE | ~2023-05-08 | CT_ITS ---
CT of the Abdomen and Pelvis: Indication: Abdominal pain, Tylenol overdose Technique: 2.5 mm axial scans were obtained through the abdomen and pelvis following intravenous adm inistration of 100 cc of Omnipaque 350. Dose reduction technique was used on this scan by utilizing a utomated exposure control and iterative reconstruction technique. The dose-length product (DLP) was 4 71.03 mGy-cm. Findings: Scans through the lung bases are unremarkable. The liver, spleen, pancreas, gallbladder, adrenals and kidneys are within normal limits. No evidence of aortic aneurysm. No lymphadenopathy. No bowel obstruction or bowel wall thickening. There is no evidence to suggest acute appendicitis. Images through the pelvis were performed. Urinary bladder unremarkable. No adnexal mass seen. No asci oscar. Impression: No significant abnormalities seen. Reviewed, dictated and finalized at [facility]. ATION FACULTY MEMBER Impression: No significant abnormalities seen.
--- NOTE | ~2023-05-08 | CT_ITS ---
Non-contrast Head CT History: Altered mental status COMPARISON: 05/18/2022 Technique: Axial non-contrast imaging of the brain was performed. Dose reduction technique was used on this scan by utilizing automated exposure control and iterative reconstruction technique. The dose -length product (DLP) was 983.67 mGy-cm. Findings: There is no evidence of intracranial hemorrhage, mass lesion, or acute infarct. Brain par enchyma appears normal. The ventricles and subarachnoid spaces are normal in size. The calvarium ap pears normal. The visualized paranasal sinuses and mastoid air cells are clear. Impression: No significant abnormality seen. Reviewed, dictated and finalized at location . [facility]ER Impression: No significant abnormality seen.
[2023-05-08 23:05] VITALS: BP 158/134; PULSE 72; RESP 18; TEMP 36.3; O2SAT 100
--- NOTE | 2023-05-08 23:06 | ECG_ITS ---
Measurements Intervals [place] Rate: 69 P: 62 NH: 171 QRS: 22 QRSD: 76 T: -24 QT: 399 QTc: 429 Interpretive Statements SINUS RHYTHM NONSPECIFIC ST & T-WAVE ABNORMALITY ABNORMAL ECG NO PREVIOUS ECG AVAILABLE FOR COMPARISON Electronically Signed On 05-09-2023 13:47:51 GLASS SILVERER by Mason Call M.D.
[2023-05-08 23:09] LABS: Glucose Point of Care 97 mg/dl (65-105)
--- NOTE | 2023-05-08 23:19 | PC.NURSE ---
[facility]
[2023-05-08 23:29] LABS: Basophils Percent Auto 0.4 % (0.2-1.2); Eosinophils Percent Auto 0.2 % (0-4.4); Hematocrit 41.4 % (37.0-47.0); Hemoglobin 13.9 g/dL (12.0-15.0); Immature Granulocyte Absolute 0.02 K/mm3 (0.00-0.031); Immature Granulocyte Percent A 0.2 % (0-0.5); Lymphocytes Absolute Auto 1.68 K/mm3 (0.9-3.2); Lymphocytes Percent Auto 17.2 % (18.3-44.2); Mean Corpuscular HGB Conc 33.6 g/dl (32-36); Mean Corpuscular Hemoglobin 29.1 pg (26-34); Mean Corpuscular Volume 86.8 fl (80-100); Mean Platelet Volume 10.8 fl (7.4-10.4); Monocytes Absolute Auto 0.3 K/mm3 (0.1-0.6); Monocytes Percent Auto 3.4 % (2.6-8.5); Neutrophils Absolute Auto 7.7 K/mm3 (1.3-6.7); Neutrophils Percent Auto 78.6 % (45.5-73.1); Platelet Count Result 274 k/mm3 (150-375); Red Blood Count 4.77 M/mm3 (4.2-5.4); Red Cell Distribution Width 12.8 % (11.5-14.5); White Blood Count 9.8 K/mm3 (4.5-10.0)
--- NOTE | 2023-05-08 23:39 | ECG_ITS ---
Measurements Intervals [place] Rate: 60 P: 58 RI: 162 QRS: 26 QRSD: 89 T: -11 QT: 411 QTc: 412 Interpretive Statements SINUS RHYTHM NONSPECIFIC T-WAVE ABNORMALITY BORDERLINE ECG COMPARED WITH 05/18/2022 NO SIGNIFICANT DIFFERENCE Electronically Signed On 05-09-2023 7:13:40 MAINTENANCE AIDE by Mason Call M.D.
[2023-05-08 23:40] LABS: Acetaminophen 72 ug/mL (10-30); Ethanol < 10 mg/dL (<10); Salicylate < 1.0 mg/dL (2-20)
[2023-05-08 23:42] LABS: Alanine Aminotransferase 26 U/L (6-35); Albumin Level 4.5 g/dL (3.5-5.1); Alkaline Phosphatase 82 U/L (38-126); Anion Gap 12 mmol/L (8-16); Aspartate Amino Transferase 32 U/L (14-36); Bilirubin,Total 0.7 mg/dL (0.2-1.3); Blood Urea Nitrogen 17 mg/dL (7-17); Calcium 9.4 mg/dL (8.4-10.2); Carbon Dioxide 24 mmol/L (22-30); Chloride 103 mmol/L (98-107); Creatine Kinase 49 U/L (30-135); Estimated CRCL calculation 90 ml/min; Estimated Glomerular Filt Rate > 60; Glucose 112 mg/dL (65-110); Potassium 4.2 mmol/L (3.4-5.0); Sodium 139 mmol/L (137-145)
[2023-05-08 23:51] LABS: Partial Thromboplastin Time 20.2 SECONDS (22.3-36.8); Prothrombin Time 13.9 Seconds (11.1-14.7)
[2023-05-09] VITALS (15 sets, daily range): BP systolic 99–125; BP diastolic 50–84; PULSE 60–108; RESP 12–24; TEMP 36.6–37.1; O2SAT 100; BMI 27.5
--- NOTE | 2023-05-09 00:15 | PC.NURSE ---
Poison control contacted and advises the medication is equivalent to Tylenol. Patient should have a level drawn upon arrival and another Tylenol level in four hours. Max 200 [place] [address] to be toxic.
--- NOTE | 2023-05-09 01:04 | ED.OVERDOSE ---
HPI - Overdose General Chief Complaint: Overdose Stated Complaint: overdose Time Seen by Provider: 05/08/23 23:07 History of Present Illness HPI Narrative: Patient is a 23-year-old female presenting after intentional overdose. States that she took an unknown amount of paracetamol juliane around 3:30 p.m.. She took this with the intent of hurting herself. Patient's fiancee is at bedside and helps with the history. She has attempted suicide in the past. States that she began vomiting this evening so he brought her in for evaluation. She complains of right upper quadrant pain and persistent nausea. Related Data Home Medications Medication Instructions Recorded Confirmed clonazepam 0.5 mg tablet 0.5 mg PO DAILY 05/18/22 05/09/23 levetiracetam 500 mg tablet 500 mg PO Q12H 05/09/23 05/09/23 Allergies Allergy/AdvReac Type Severity Reaction Status Date / Time No Known Allergies Allergy Verified 04/30/23 22:15 Review of Systems Review of Systems: All systems reviewed & are unremarkable except as noted in HPI and below PMFSH Past Medical History Medical History Anxiety and depression Psychogenic nonepileptic seizure PTSD (post-traumatic stress disorder) Vitamin D deficiency Surgical History Surgical History No pertinent past surgical history Family History Family History Father Diabetes mellitus Social History Social History Social History: 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 She is originally from [place]. She has been [place]. She is currently engaged. She used to binge drink until she would pass out to help cope with stress. She quit doing this in 2021. She is a lifelong nonsmoker. She denies illicit substance use. Smoking status: Never smoker Second hand tobacco smoke exposure: No Alcohol intake: current Drinks per week: 1 Substance use: never Substance use type: does not use Do You Feel Safe in your Home?: Yes Lack of Transportation: No Lack of Food: Never True Current Housing: I Have Housing Concerned About Future Housing: No Difficulty Paying Gas/Electric Bills: No Difficulty Paying for Meds: No Currently Unemployed: No Education: Don't Know Difficulty w/ Childcare or Family Care: No Spiritual care concerns: No Exam Narrative: GENERAL: Nontoxic female lying in bed in no acute distress, sleepy but conversing appropriately HEAD: Normocephalic, atraumatic. EYES: PERRLA and EOMI. ENT: Mucous membranes moist. NECK: Supple. CHEST: Clear to auscultation. No respiratory distress. HEART: Regular rate and rhythm ABDOMEN: Soft, + epigastric and right upper quadrant tenderness without guarding or rebound EXTREMITIES: Normal range of motion. SKIN: Warm, dry, no rash. NEURO: No focal deficits. Alert and oriented x3. PSYCH: +SI Course Vital Signs Vital signs: Vital Signs Temperature 97.3 F L 05/08/23 23:05 Pulse Rate 72 05/08/23 23:05 Respiratory Rate 18 05/08/23 23:05 Blood Pressure 158/134 H 05/08/23 23:05 Pulse Oximetry 100 05/08/23 23:05 Oxygen Delivery Room Air 05/08/23 23:05 Temperature 98.7 F 05/09/23 22:00 Pulse Rate 73 05/10/23 00:05 Respiratory Rate 25 H 05/10/23 00:05 Blood Pressure 124/98 H 05/10/23 00:05 Pulse Oximetry 100 05/10/23 00:05 Oxygen Delivery Room Air 05/10/23 03:26 MDM - Overdose MDM Narrative Medical decision making narrative: 23-year-old female presenting after intentional overdose of acetaminophen. Vital stable. Exam remarkable for the above. Patient's fiancee estimates that she took approximately 15-20 pills of paracetamol 650 which comes out to about 89652 mg of acetaminophen. Her initial Ty
[2023-05-09 01:09] LABS: Appearance Urine Clear (Clear); Bacteria Urine 2+ /hpf; Bilirubin Urine Negative (Negative); Blood Urine Negative (Negative); Color Urine Yellow (Yellow); Glucose Urine UA Negative (Negative); Ketones Urine Trace mg/dL (Negative); Leukocyte Esterase Ur 1+ LEU/UL (Negative); Nitrate Urine Negative (Negative); Non Pathogenic Casts 0-2; Protein Urine Negative (Negative); RBC Urine 0-2 /hpf (0-2); Squamous Epithelial Cell Urine Few /hpf (Few)
[2023-05-09 01:31] LABS: Add Urine Microscopic? YES; Specific Grav Ur 1.055 (1.001-1.035)
[2023-05-09 01:34] LABS: Lipase 131 U/L (23-300)
[2023-05-09 04:05] LABS: Barbiturate Screen Urine Negative (Negative); Benzodiazepines Screen Urine Negative (Negative)
--- NOTE | 2023-05-09 04:12 | PM.IMHP ---
H&P: HPI History of Present Illness Date/Time: 05/09/23 04:12 Chief Complaint: Medication overdose Narrative: 23-year-old female with a past medical history of nonepileptic seizures, depression and vitamin-D deficiency who presented to the ER from home by private vehicle due to overdose of acetaminophen. Patient reports she took 15-20 tablets of 650 [id number]. She took the medication in an attempt to harm herself. She reports that she had been suffering for depression for many years and has had intermittent episodes of wanting to hurt herself. The last time she was hospitalized for depression was 2 years ago. She reports that she has been under extra stressors with her master's program and is in her last semester of schooling. She reports that her mood had improved approximately 1 year ago when her fiance came over from [facility] to join her. However the stress has become too much and she was feeling overwhelmed. She were also reports frequent headaches of varying types 10 intensity. Sometimes she will have headaches I will last for up to a week or more. She is not currently having headache. She did have 1 episode of vomiting prior to arriving at the hospital which is what prompted her to come to the hospital. Her emesis was bilious and nonbloody. She reports some burning sensation in her epigastric region. She denies any overdose of other substances. She does have a history of heavy alcohol use in the past but once her fiance came over here she went from binge drinking every day until she fell asleep to only drinking about once a month. She denies any illicit substance use. She denies any intent to harm others. She reports that she feels exhausted constantly. She does snore. Her fiance states that the patient gets up multiple times at night and is a restless sleeper. Patient gave permission for me to discuss her medical information with her fiance. She does not want her medical information released to the remainder of her family. The patient is extremely concerned about her academics and missing classes and an exam that she is supposed to have today. I discussed this with ER provider who has agreed to write for a school note regarding her acute hospitalization. I did provide the patient's fiancee with the hospitalist's office number in case they had difficulty obtaining the note. Review of Systems Review of Systems: 12 systems were reviewed with pertinent positives and negatives per HPI. Except as documented in the HPI, all other systems were reviewed and are negative. [facility] Past Medical History Medical History (Updated 05/09/23 @ 07:07 by Hayley Edwards DO) Anxiety and depression Psychogenic nonepileptic seizure PTSD (post-traumatic stress disorder) Vitamin D deficiency Surgical History Surgical History No pertinent past surgical history Family History Family History Father Diabetes mellitus Social History Social History (Updated 05/09/23 @ 06:55 by Hayley Edwards DO) Social History: Patient is currently studying [employer] at [employer] for her master's program. She is originally from [place]. [place] the [place]. She is currently engaged. She used to binge drink until she would pass out to help cope with stress. She quit doing this in 2021. She is a lifelong nonsmoker. She denies illicit substance use. Smoking status: Never smoker Second hand tobacco smoke exposure: No Alcohol intake: current Drinks per week: 1 Substance use: never Substance use type: does not use Lack of Transportation: No Lack of Food: Never True Current Housing: I Have Housing Concerned About Future Housing: No Difficulty Paying Gas/Electric Bills: No Difficulty Paying for Meds: No Currently Unemployed: No Education: Bachelor's Degree Difficulty w/ Childcare
[2023-05-09 04:20] LABS: Amphetamine Screen Urine Negative (Negative); Cocaine Screen Urine Negative (Negative); Methadone Screen Urine Negative (Negative); Opiate Screen Urine Negative (Negative); Phencyclidine Screen Urine Negative (Negative)
[2023-05-09 04:21] LABS: Cannabinoid Screen Urine Negative (Negative)
[2023-05-09 05:30] LABS: Acetaminophen 14 ug/mL (10-30)
--- NOTE | 2023-05-09 07:12 | ADMGEN ---
This patient, Lisa Newman, was admitted to Intensive Care Unit-7 at 0646. Patient/family oriented to hospital policies and general routines including ID bracelet, bed and alarms, visiting hours, pain management, procedures, bathroom and other care routines, personal items, smoking policy, room service/diet, and visiting hours. Information on how to activate the Rapid Response Team has been discussed. Patient/Family are encouraged to report perceived risks to care and to ask questions if they do not understand what they are told or what they should do.
--- NOTE | 2023-05-09 08:34 | PC.NURSE ---
Addendum entered by Nivia Murphy RN 05/09/23 09:03: Phone number to Poison Control is [phone]. Case # [id number] Original Note: Spoke with Leticia from Poison Control. New recommendations to draw Tylenol level, CMP and Coags (PT, PTT, INR) two hours prior to infusion ending. Poison Control will call back this evening for an update. Dr. Crooks updated with [facility] Controls' recommendations. Orders placed.
--- NOTE | 2023-05-09 09:03 | PC.NURSE ---
Spoke with Kimber, RN @ [facility] Control @ 0829. Informed her that this RN had just spoken with Leticia from Poison Control @ 0867. Kimber informed this RN that [place] [facility] must be following the case as well since she's from [place] [facility]. We will let [place] take over and continue to follow the case. We won't try to keep calling. This RN updated Kimber with pt's condition as well as recommendations that were received from [place] [facility]. Kimber in agreement with their recommendations. Dr. Tabor updated.
[2023-05-09 09:31] LABS: Alanine Aminotransferase 22 U/L (6-35); Albumin Level 3.8 g/dL (3.5-5.1); Alkaline Phosphatase 32 U/L (38-126); Anion Gap 10 mmol/L (8-16); Aspartate Amino Transferase 32 U/L (14-36); Bilirubin,Total 0.4 mg/dL (0.2-1.3); Blood Urea Nitrogen 16 mg/dL (7-17); Calcium 8.8 mg/dL (8.4-10.2); Carbon Dioxide 24 mmol/L (22-30); Chloride 103 mmol/L (98-107); Estimated CRCL calculation 102 ml/min; Estimated Glomerular Filt Rate > 60; Glucose 106 mg/dL (65-110); Sodium 137 mmol/L (137-145)
[2023-05-09 09:40] LABS: Potassium 3.8 mmol/L (3.4-5.0)
--- NOTE | 2023-05-09 09:43 | WPDCNINT ---
Assessment and Plan Assessment and plan (1) Intentional acetaminophen overdose: Qualifiers: Encounter type: initial encounter Qualified Code(s): T39.1X2A - Poisoning by 4-Aminophenol derivatives, intentional self-harm, initial encounter Code(s): T39.1X2A - Poisoning by 4-Aminophenol derivatives, intentional self-harm, initial encounter Status: Acute Assessment and Plan: Intentional acetaminophen overdose as suicide attempt Patient is now an acetylcysteine Most recent acetaminophen level is low and her liver enzymes have been normal Recheck LFTs now and then prior to completion of current and NAC infusion Coags normal IV fluids Poison control in consult (2) Anxiety and depression: Code(s): F41.9 - Anxiety disorder, unspecified; F32.A - Depression, unspecified Status: Acute Assessment and Plan: Continue Lexapro Psychiatric evaluation once medical issues are cleared Suicide precautions (3) Psychogenic nonepileptic seizure: Code(s): F44.5 - Conversion disorder with seizures or convulsions Status: Acute Assessment and Plan: Patient carries a diagnosis of seizure disorder for many years [place] to [place] She has not had any formal workup here in the [place] although she did had EEG on last admission which was negative. Per Neurology she likely has psychogenic seizures but epileptic seizures cannot be completely ruled out hence patient has been on Keppra which will be continued at this time with seizure precautions. For detail further workup as an outpatient (4) Suicide attempt by acetaminophen overdose: Code(s): T39.1X2A - Poisoning by 4-Aminophenol derivatives, intentional self-harm, initial encounter Status: Acute Plan DVT prophylaxis -SCDs Nutrition -start diet Code Status - Full Code H[employer] Wrecker Consult Note Consult date: 05/09/23 Reason for consult: Acetaminophen toxicity, suicide attempt HPI: Lisa Newman is a 23 year old female with past medical history of depression, anxiety, suicide attempt, psychogenic seizures presented to ER last night after taking 15-20 tablets of 650 mg of acetaminophen. 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 Patient states that her last attempt was more than 2 years ago in [place] and she was admitted for that. She claims that she is taking her medications regularly although she does admit to skipping doses here and there. She states that she had her exam on 06 April during which she felt anxious and had a seizure and was unable to complete the exam. Yesterday when she received the scores of the exam she felt depressed and hopeless and to the pills. She states that was depressed and was drinking alcohol heavily until a year ago until her fiance arrived she has helped removed and she has cut down on her alcohol intake to once or twice a month. She she states she gets symptoms of anxiety pretty frequently depending on social stressful situation and feels heaviness in her chest and inability to breathe put does not take any p.r.n. medications. She also complains of intermittent headache although she describes it as a 'mental headache' rather than 'physical'. Yesterday had she had 1 episode of vomiting which was bilious and did not had any blood. She states her seizures are precipitated by stress and anxiety episodes and frequency is variable. She was unable to give me any further details about her seizure episode. Apart from that she denies any other complaints and all other systems reviewed and were negative On arrival to ER patient was found to be having elevated Will of acetaminophen although her liver enzyme were in normal range. Poison control was contacted patient was started on N-acetylcysteine infusion and patient was admitted to ICU with seizure and suicide precautions. This morning
[2023-05-09] MEDS: SODIUM CHLORIDE 0.9% IV 1,000 ML 999 ML IV CONT (10:00)
[2023-05-09 10:54] LABS: MRSA (PCR) NOT DETECTED (NOT DETECTE)
[2023-05-09] MEDS: LACTATED RINGERS 1,000 ML 75 ML IV CONT (11:16)
[2023-05-09] MEDS: levETIRAcetam 500 MG TABLET PO ×2 (15:06→20:46)
[2023-05-09] MEDS: ESCITALOPRAM OXALATE 10 MG TABLET 20 MG PO (15:06)
--- NOTE | 2023-05-09 21:17 | PM.IMPN ---
Subjective Date/time seen: 05/09/23 21:17 Objective Data Vital Signs Vital Signs: Vital Signs - 24 hr 05/08/23 23:05 05/09/23 00:13 05/09/23 02:44 Temperature 36.3 C L Pulse Rate 72 60 74 Respiratory Rate 18 15 15 Blood Pressure 158/134 H 110/60 112/50 L Pulse Oximetry 100 100 100 Oxygen Delivery Room Air 05/09/23 07:14 05/09/23 08:50 05/09/23 08:00 Temperature 36.9 C Pulse Rate 75 69 Respiratory Rate 12 20 Blood Pressure 121/84 116/79 Pulse Oximetry 100 100 100 Oxygen Delivery Room Air 05/09/23 08:00 05/09/23 10:00 05/09/23 10:00 Temperature Pulse Rate 64 76 67 Respiratory Rate 18 Blood Pressure 120/83 Pulse Oximetry 100 Oxygen Delivery 05/09/23 12:00 05/09/23 13:09 05/09/23 15:07 Temperature 36.8 C 36.9 C Pulse Rate 66 82 108 H Respiratory Rate 17 24 H Blood Pressure 116/60 99/72 L Pulse Oximetry 100 100 Oxygen Delivery 05/09/23 12:00 05/09/23 16:00 05/09/23 14:00 Temperature Pulse Rate 88 Respiratory Rate Blood Pressure Pulse Oximetry 100 100 Oxygen Delivery Room Air Room Air 05/09/23 16:00 05/09/23 18:31 05/09/23 18:00 Temperature 36.6 C Pulse Rate 77 70 72 Respiratory Rate 17 Blood Pressure 113/75 Pulse Oximetry 100 Oxygen Delivery 05/09/23 20:00 05/09/23 20:00 Temperature Pulse Rate 79 Respiratory Rate 16 Blood Pressure 105/82 Pulse Oximetry 100 100 Oxygen Delivery Room Air Intake/Output Intake/Output: Intake & Output 05/06/23 05/07/23 05/08/23 05/09/23 23:59 23:59 23:59 23:59 Intake Total 495.5 Balance 495.5 Meds/Results Medications: Active Medications Generic Name Dose Route Start Last Admin Trade Name Freq PRN Reason Stop Dose Admin Escitalopram Oxalate 20 mg 05/09/23 14:49 05/09/23 15:06 Escitalopram Oxalate 10 Mg Tablet PO 20 mg DAILY DAIJA Administration Acetylcysteine 7,400 mg/ 1,037 mls @ 64.813 mls/hr 05/09/23 07:45 05/09/23 07:51 Dextrose IVPB 05/09/23 23:44 64.81 mls/hr ONCE ONE Administration Lactated Ringer's 1,000 mls @ 75 mls/hr 05/09/23 08:45 05/09/23 11:16 Lr - Lactated Ringers Iv IV CONT 75 mls/hr .[id number] DAIJA Administration Levetiracetam 500 mg 05/09/23 14:50 05/09/23 20:46 Levetiracetam 500 Mg Tablet PO 500 mg Q12HR DAIJA Administration Radiology Results: ITS Impressions Abdomen/Pelvis CT 05/09/23 05:57 Impression: No significant abnormalities seen. Head CT 05/09/23 05:57 Impression: No significant abnormality seen. Labs Labs: Laboratory Results - last 24 hr 05/08/23 05/08/23 05/08/23 23:06 23:19 23:19 WBC 9.8 RBC 4.77 Hgb 13.9 Hct 41.4 MCV 86.8 MCH 29.1 MCHC 33.6 RDW 12.8 Plt Count 274 MPV 10.8 H Immature Gran % (Auto) 0.2 Neut % (Auto) 78.6 H Lymph % (Auto) 17.2 L Clay % (Auto) 3.4 Eos % (Auto) 0.2 Baso % (Auto) 0.4 Lymph # (Auto) 1.68 Clay # (Auto) 0.3 Eos # (Auto) 0.0 Baso # (Auto) 0.0 Abs Immat Gran (auto) 0.02 Absolute Neuts (auto) 7.7 H Absolute Nucleated RBC 0.0 Nucleated RBC % 0.0 PT Cancelled 13.9 INR Cancelled APTT Sodium Potassium Chloride Carbon Dioxide Anion Gap BUN Creatinine Estim Creat Clear Calc Estimated GFR Glucose POC Capillary Glucose 97 Calcium Total Bilirubin AST ALT Alkaline Phosphatase Total Creatine Kinase Total Protein Albumin Lipase TSH (Reflex) Urine Color Urine Appearance Urine pH Ur Specific [place] Urine Protein Urine Glucose (UA) Urine Ketones Ur Blood (Man) Urine Nitrate Urine Bilirubin Urine Urobilinogen Leukocyte Esterase Rfl Urine RBC Urine WBC Ur Squamous Epith Cells Urine Bacteria Urine Casts Nasal MRSA (PCR) Salicylates Urine Opiates Screen Urine Methadone Screen Acetaminophen Ur
[2023-05-09 22:22] LABS: Acetaminophen < 10 ug/mL (10-30)
[2023-05-09 22:24] LABS: Alanine Aminotransferase 19 U/L (6-35); Albumin Level 3.6 g/dL (3.5-5.1); Alkaline Phosphatase 80 U/L (38-126); Anion Gap 8 mmol/L (8-16); Aspartate Amino Transferase 18 U/L (14-36); Bilirubin,Total 0.2 mg/dL (0.2-1.3); Blood Urea Nitrogen 10 mg/dL (7-17); Calcium 8.3 mg/dL (8.4-10.2); Carbon Dioxide 21 mmol/L (22-30); Chloride 110 mmol/L (98-107); Estimated CRCL calculation 135 ml/min; Estimated Glomerular Filt Rate > 60; Glucose 105 mg/dL (65-110); Potassium 3.8 mmol/L (3.4-5.0); Sodium 139 mmol/L (137-145)
--- NOTE | 2023-05-09 23:01 | PC.NURSE ---
3830 : Spoke with Parveen from Poison control. Provided update regarding patient condition and most recent labs. Case closed. Reference # [id number]
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
[2023-05-10] VITALS (9 sets, daily range): BP systolic 95–124; BP diastolic 61–98; PULSE 67–85; RESP 14–25; TEMP 36.6–37; O2SAT 98–100
[2023-05-10] MEDS: LACTATED RINGERS 1,000 ML 75 ML IV CONT (00:36)
[2023-05-10 04:34] LABS: Hematocrit 34.4 % (37.0-47.0); Hemoglobin 11.5 g/dL (12.0-15.0); Mean Corpuscular HGB Conc 33.4 g/dl (32-36); Mean Corpuscular Hemoglobin 29.2 pg (26-34); Mean Corpuscular Volume 87.3 fl (80-100); Mean Platelet Volume 10.7 fl (7.4-10.4); Platelet Count Result 221 k/mm3 (150-375); Red Blood Count 3.94 M/mm3 (4.2-5.4); Red Cell Distribution Width 12.9 % (11.5-14.5); White Blood Count 6.7 K/mm3 (4.5-10.0)
[2023-05-10 04:47] LABS: Alanine Aminotransferase 17 U/L (6-35); Albumin Level 3.3 g/dL (3.5-5.1); Alkaline Phosphatase 83 U/L (38-126); Anion Gap 4 mmol/L (8-16); Aspartate Amino Transferase 19 U/L (14-36); Bilirubin,Total 0.2 mg/dL (0.2-1.3); Blood Urea Nitrogen 9 mg/dL (7-17); Calcium 8.2 mg/dL (8.4-10.2); Carbon Dioxide 25 mmol/L (22-30); Chloride 110 mmol/L (98-107); Estimated CRCL calculation 115 ml/min; Estimated Glomerular Filt Rate > 60; Glucose 96 mg/dL (65-110); Magnesium 2.1 mg/dL (1.6-2.3); Potassium 3.8 mmol/L (3.4-5.0); Sodium 139 mmol/L (137-145)
[2023-05-10] MEDS: ESCITALOPRAM OXALATE 10 MG TABLET 20 MG PO (08:43)
[2023-05-10] MEDS: SULFAMETHOXAZOLE/TRIMETHOPRIM 800/160 MG DS TABLET 1 TAB PO (08:43)
[2023-05-10] MEDS: levETIRAcetam 500 MG TABLET PO (08:43)
--- NOTE | 2023-05-10 09:00 | WPDINTPN ---
Progress Note: A&P Assessment and Plan (1) Intentional acetaminophen overdose: Code(s): T39.1X2A - Poisoning by 4-Aminophenol derivatives, intentional self-harm, initial encounter Status: Acute Assessment and Plan: Intentional acetaminophen overdose as suicide attempt Patient completed course of acetylcysteine Most recent acetaminophen level is low and her liver enzymes have remained normal Coags normal Will discontinue further iV fluids Poison control in consult (2) Anxiety and depression: Code(s): F41.9 - Anxiety disorder, unspecified; F32.A - Depression, unspecified Status: Acute Assessment and Plan: Continue Lexapro Psychiatric evaluation today Continue suicide precautions (3) Psychogenic nonepileptic seizure: Code(s): F44.5 - Conversion disorder with seizures or convulsions Status: Acute Assessment and Plan: Patient carries a diagnosis of seizure disorder for many years prior to [place] came [place] She has not had any formal workup [place] the [place] although she did had EEG on last admission which was negative. Per Neurology she likely has psychogenic seizures but epileptic seizures cannot be completely ruled out hence patient has been on Keppra which will be continued at this time with seizure precautions. For detail further workup as an outpatient (4) Suicide attempt by acetaminophen overdose: Code(s): T39.1X2A - Poisoning by 4-Aminophenol derivatives, intentional self-harm, initial encounter Status: Acute Assessment and Plan: See above (5) UTI (urinary tract infection): Code(s): N39.0 - Urinary tract infection, site not specified Status: Acute Assessment and Plan: Patient has slightly abnormal UA no fever or WBC. Yesterday patient denied any symptom but today on revisiting the issue she admitted that she had some frequency of urination prior to admission although she denies any dysuria hematuria foul-smelling urine or fever. Urine culture is pending I will order Bactrim DS b.i.d. for 3 days Plan DVT prophylaxis -SCDs Nutrition -tolerating p.o. diet Code Status - Full Code Transfer out of ICU today Subjective Date/time seen: 05/10/23 Overnight events reviewed. Afebrile On room air tolerating p.o. diet Completed NAC infusion Denies any complaints Other Vitals acceptable I reviewed her UA with her and asked about urinary symptoms. She denies any dysuria foul-smelling urine or history of UTI but she did admit that she was having some frequency prior to admission which she did not take it seriously Review of Systems Review of Systems: All systems reviewed & are unremarkable except as noted in HPI and below (HPI) Exam Narrative: General: Pt is alert awake and in NAD Lungs/Chest: Trachea central Clear BS B/L, No crackles or wheezing. Cardiac: RRR. Normal S1 S2. No murmurs Circulation: Pedal pulses are intact and symmetrical. Abdomen: Normal bowel sounds.. Soft. NT. ND. Extremities: No clubbing, cyanosis or edema. Warm : [place] in place Neurologic: Follows commands. Moves all 4 extremities PERRL Skin: No Rash Objective Data Vital Signs Vital Signs: Vital Signs - 24 hr 05/09/23 10:00 05/09/23 10:00 05/09/23 12:00 Temperature Pulse Rate 76 67 66 Respiratory Rate 18 Blood Pressure 120/83 Pulse Oximetry 100 Oxygen Delivery 05/09/23 13:09 05/09/23 15:07 05/09/23 12:00 Temperature 36.8 C 36.9 C Pulse Rate 82 108 H Respiratory Rate 17 24 H Blood Pressure 116/60 99/72 L Pulse Oximetry 100 100 100 Oxygen Delivery Room Air 05/09/23 16:00 05/09/23 14:00 05/09/23 16:00 Temperature Pulse Rate 88 77 Respiratory Rate Blood Pressure Pulse Oximetry 100 Oxygen Delivery Room Air 05/09/23 18:31 05/09/23 18:00 05/09/23 20:00 Temperature 36.6 C Pulse Rate 70 72 79 Respiratory Rate 17 16 Blood Pressure 113/75 105/82 Pulse Oximetry 100 100 Oxygen Deliver
--- NOTE | 2023-05-10 09:57 | PM.IMPN ---
Progress Note: A&P Assessment and Plan (1) Intentional acetaminophen overdose: Code(s): T39.1X2A - Poisoning by 4-Aminophenol derivatives, intentional self-harm, initial encounter Status: Acute Assessment and Plan: Intentional acetaminophen overdose as suicide attempt Patient completed course of acetylcysteine Most recent acetaminophen level is low and her liver enzymes have remained normal Coags normal Will discontinue further iV fluids Poison control in consult (2) Anxiety and depression: Code(s): F41.9 - Anxiety disorder, unspecified; F32.A - Depression, unspecified Status: Acute Assessment and Plan: Continue Lexapro Psychiatric evaluation today Continue suicide precautions Stable, patient is calm, no obvious anxiety (3) Psychogenic nonepileptic seizure: Code(s): F44.5 - Conversion disorder with seizures or convulsions Status: Acute Assessment and Plan: Patient carries a diagnosis of seizure disorder for many years [place] to [place] has not had any formal workup here in the [place] although she did had EEG on last admission which was negative. Per Neurology she likely has psychogenic seizures but epileptic seizures cannot be completely ruled out hence patient has been on Keppra which will be continued at this time with seizure precautions. For detail further workup as an outpatient. 2/3: Patient did not have seizure over the night. Continue current management (4) Suicide attempt by acetaminophen overdose: Code(s): T39.1X2A - Poisoning by 4-Aminophenol derivatives, intentional self-harm, initial encounter Status: Acute Assessment and Plan: See above (5) UTI (urinary tract infection): Code(s): N39.0 - Urinary tract infection, site not specified Status: Acute Assessment and Plan: Patient has slightly abnormal UA no fever or WBC. Yesterday patient denied any symptom but today on revisiting the issue she admitted that she had some frequency of urination prior to admission although she denies any dysuria hematuria foul-smelling urine or fever. Urine culture is pending I will order Bactrim DS b.i.d. for 3 days 2/3: Urine culture final no growth Plan DVT prophylaxis -SCDs Nutrition -tolerating p.o. diet Code Status - Full Code Chronic patient is medically stable, ready to be discharged or transferred to psych unit based upon the crisis evaluation Subjective Date/time seen: 05/10/23 09:57 Interval history: I saw and examined patient today. Patient is calm, patient denies abdomen pain, nausea vomiting, chest pain, shortness breast, headache, vision change, focal weakness. Patient is afebrile over the night, no O2 desaturation, blood pressure stable. Labs reviewed, liver enzymes within normal limit. Exam Narrative: GENERAL: Pleasant, in no acute distress. Well-nourished. - EYES: EOMI. Anicteric. - HENT: Moist mucous membranes. - LUNGS: Clear to auscultation bilaterally, no wheezing, rhonchi, or rales. - CARDIOVASCULAR: Regular rate and rhythm. No murmur. No JVD. - ABDOMEN: Soft, non-tender and non-distended. No palpable masses. - EXTREMITIES: No edema. Peripheral pulses 2+. Non-tender. - NEUROLOGIC: No focal neurological deficits. CN II-XII grossly intact. - PSYCHIATRIC: Awake, Alert and oriented x 3. Appropriate mood and affect. - SKIN: No rashes or lesions. Warm. - LYMPH: No cervical lymphadenopathy. Objective Data Vital Signs Vital Signs: Vital Signs - 24 hr 05/09/23 10:00 05/09/23 10:00 05/09/23 12:00 Temperature Pulse Rate 76 67 66 Respiratory Rate 18 Blood Pressure 120/83 Pulse Oximetry 100 Oxygen Delivery 05/09/23 13:09 05/09/23 15:07 05/09/23 12:00 Temperature 98.3 F 98.5 F Pulse Rate 82 108 H Respiratory Rate 17 24 H Blood Pressure 116/60 99/72 L Pulse Oximetry 100 100 100 Oxygen Delivery Room Air 05/09/23 16:00 05/09/23 14:00 05/09/23 16:00 Tem[place]a
--- NOTE | 2023-05-10 12:50 | PC.NURSE ---
Attempted to call Dr. Hernández at 0940, no answer on cell phone, no voice mail available. Spoke with Dr. Hernández by phone at [phone] and [phone] regarding need for note to say pt is medically cleared. Cleater Kimber states Crisis Team cannot be contacted until note is in. Dr. Hernández aware. Dr. Hernández here to see patient at 1145. Reminded about including medically cleared in his note, and order to downgrade to medical status. States he is too busy and does not know when he will be able to do that. States pt is medically cleared. Vale from Care Coordination notified
--- NOTE | 2023-05-10 16:20 | PM.DS ---
DS: Admitting Diagnosis Discharge Date 05/10/23 Admitting Diagnosis (1) Intentional acetaminophen overdose: ?Code(s): T39.1X2A - Poisoning by 4-Aminophenol derivatives, intentional self-harm, initial encounter ?Status:?Acute DS: Discharge Diagnosis Discharge Diagnosis (1) Suicide attempt by acetaminophen overdose: Code(s): T39.1X2A - Poisoning by 4-Aminophenol derivatives, intentional self-harm, initial encounter Status: Acute (2) Intentional acetaminophen overdose: Code(s): T39.1X2A - Poisoning by 4-Aminophenol derivatives, intentional self-harm, initial encounter Status: Acute (3) Anxiety and depression: Code(s): F41.9 - Anxiety disorder, unspecified; F32.A - Depression, unspecified Status: Acute (4) PTSD (post-traumatic stress disorder): Code(s): F43.10 - Post-traumatic stress disorder, unspecified Status: Acute (5) UTI (urinary tract infection): Code(s): N39.0 - Urinary tract infection, site not specified Status: Acute DS: Summary Hospital Course Hospital Course: Per H&P, 23-year-old female with a past medical history of nonepileptic seizures, depression and vitamin-D deficiency who presented to the ER from home by private vehicle due to overdose of acetaminophen.? Patient reports she took 15-20 tablets of 650 [id number].? She took the medication in an attempt to harm herself.? She reports that she had been suffering for depression for many years and has had intermittent episodes of wanting to hurt herself.? The last time she was hospitalized for depression was 2 years ago.? 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 She reports that her mood had improved approximately 1 year ago when her fiance came over from [place] to join her.? However the stress has become too much and she was feeling overwhelmed.? She were also reports frequent headaches of varying types 10 intensity.? Sometimes she will have headaches I will last for up to a week or more.? She is not currently having headache.? She did have 1 episode of vomiting prior to arriving at the hospital which is what prompted her to come to the hospital.? Her emesis was bilious and nonbloody.? She reports some burning sensation in her epigastric region.? She denies any overdose of other substances.? She does have a history of heavy alcohol use in the past but once her fiance came over here she went from binge drinking every day until she fell asleep to only drinking about once a month.? She denies any illicit substance use.? She denies any intent to harm others.? She reports that she feels exhausted constantly.? She does snore.? Her fiance states that the patient gets up multiple times at night and is a restless sleeper. The following medical issues have been addressed during hospitalization (1) Intentional acetaminophen overdose: ?Code(s): T39.1X2A - Poisoning by 4-Aminophenol derivatives, intentional self-harm, initial encounter ?Status:?Acute ?Assessment and Plan: Intentional acetaminophen overdose as suicide attempt Patient completed course of acetylcysteine Most recent acetaminophen level is low and her liver enzymes have remained normal Coags normal Will discontinue further iV fluids Poison control in consult 2/3: Liver enzymes within normal limit, completed his treatment of acetylcysteine. Patient has no abdomen pain, nausea vomiting. (2) Anxiety and depression: ?Code(s): F41.9 - Anxiety disorder, unspecified; F32.A - Depression, unspecified ?Status:?Acute ?Assessment and Plan: Continue Lexapro Psychiatric evaluation today Continue suicide precautions Stable, patient is calm, no obvious anxiety (3) Psychogenic nonepileptic seizure: ?Code(s): F44.5 - Conversion disorder with seizures or convulsions ?Status:?Acute ?Assessment and Plan: Patient carries a diagnosis of seizure disorder for
--- NOTE | 2023-05-10 20:30 | PC.NURSE ---
Patient received discharge papers from day shift RN. Patient awaiting ride home from [facility]. Patient a/o x4. Patient has no complaints at this time. Patient denies thoughts of harming herself.
== END 2023-05-10 22:18 | disposition home or self-care (01) | DRG 918 ==
LOC: ANHED 23:58 → ANHICU 05-09 05:33
PROVIDERS: Internal Medicine; Admitting Provider Internal Medicine; Emergency Provider Emergency Medicine; Visit Provider Hospitalist
DX: T39.1X2A Poisoning by 4-Aminophenol derivatives, intentional self-harm, initial encounter (principal); F41.9 Anxiety disorder, unspecified; F32.A Depression, unspecified; F43.10 Post-traumatic stress disorder, unspecified; F44.5 Conversion disorder with seizures or convulsions
CPT/HCPCS: 36415; 70450; 74177; 80053; 80307; 81001; 81025; 82550; 82948; 83690; 83735; 84443; 85025; 85027; 85610; 85730; 87086; 87641; 93005; 96365; 99285; A9270; J0132; J7030; J7060; J7070; J7120; Q9967